=== PATIENT | male | born 1950 | race Caucasian/White ===

== ENCOUNTER 2017-01-04 21:23 | Emergency (ER) | payer MEDICARE ==
[~2017-01-04] VITALS: Ht 175.3 cm; Wt 85.0 kg
[2017-01-04 21:27] VITALS: BP 124/73; PULSE 79; RESP 18; TEMP 97.8; O2SAT 95
--- NOTE | 2017-01-04 21:40 | PD ---
HPI Chief Complaint: Alcohol/Drug Intoxication Time Seen by Provider: 21:40 Travel History International Travel<30 days: No Contact w/Intl Traveler<30days: No Traveled to known affect area: No History of Present Illness HPI 66-year-old white male presents to emergency department for evaluation of alcohol intoxication and falling. The patient here is visiting his who is a long-term patient as an inpatient. The patient had been out at [facility] [place] [facility] this evening. He was noted be unstable on his feet and had fallen after getting off the elevator this evening. The patient denies any trauma. He denies any head injury. No neck or back pain. No nausea vomiting. He does admit to drinking. [facility]LY [facility] Past Medical History Narrative Medical Denies hypertension and diabetes Medical History: Denies Significant Hx Tetanus Vaccination: < 5 Years Past Surgical History Surgical History: No Previous Surgery Social History Alcohol Use: Yes Tobacco Use: No Allergies-Medications (Allergen,Severity, Reaction): Coded Allergies: No Known Allergies (Unverified , 01/04/17) Reported Meds & Prescriptions Reported Meds & Active Scripts Active No Active Prescriptions or Reported Medications Review of Systems ROS Limitations: Intoxication Physical Exam Narrative GENERAL: Well-nourished, well-developed patient. There is no evidence of trauma. Patient smells of EtOH and appears intoxicated SKIN: Warm and dry. HEAD: Normocephalic and atraumatic. EYES: No scleral icterus. No injection or drainage. ENT: No nasal drainage noted. Mucous membranes pink. Airway patent. NECK: Supple, trachea midline. Moves head freely without obvious discomfort. CARDIOVASCULAR: Regular rate and rhythm without murmurs, gallops, or rubs. RESPIRATORY: Breath sounds equal bilaterally. No accessory muscle use. GASTROINTESTINAL: Abdomen soft, non-tender, nondistended. EXTREMITIES: No cyanosis or edema. BACK: Nontender without obvious deformity. No CVA tenderness. NEURO: Patient is alert and oriented. no sensorimotor deficits. Nonfocal. Slow and slurred speech. PSYCH: No delusions. No auditory or visual hallucinations. Data Data Last Documented VS Vital Signs Date Time Temp Pulse Resp B/P Pulse Ox O2 Delivery O2 Flow Rate FiO2 01/04/17 21:27 97.8 79 18 124/73 95 MDM Medical Decision Making Medical Screen Exam Complete: Yes Emergency Medical Condition: Yes Medical Record Reviewed: Yes Differential Diagnosis Differential diagnoses: Alcohol intoxication, substance abuse, electrolyte abnormality, malingering Narrative Course The patient will be allowed to sober appearing the ER. Once he exhibits sobriety he will be discharged. This is alcohol intoxication, falling Diagnosis Primary Impression: Alcohol intoxication Qualified Code: F10.120 - Alcohol intoxication, uncomplicated Additional Impression: Falling Patient Instructions: General Instructions Additional Instructions: Rest. Increase oral intake. Avoid alcohol. No driving under influence of alcohol or drugs. Follow-up with a medical doctor as needed. Return to the ER if any problems. Med/Other Pt SpecificInfo: No Meds Exist/No RX given Scripts No Active Prescriptions or Reported Meds Disposition: 01 DISCHARGE HOME Condition: Stable Dayron Hwang Jan 04, 2017 21:40
== END 2017-01-05 00:26 | disposition home or self-care (01) ==
LOC: NEPB 21:23
DX: F10.120 Alcohol abuse with intoxication, uncomplicated (principal); Z91.81 History of falling
CPT/HCPCS: 99283